=== PATIENT | female | born 1940 ===

== ENCOUNTER 2016-12-20 16:06 | Emergency (ER) | payer MEDICARE ==
[~2016-12-20] VITALS: Ht 152.4 cm; Wt 59.0 kg
--- NOTE | ~2016-12-20 | CT104 ---
[facility] A Service of [facility] RADIOLOGY TEXT RESULTS PATIENT: RICARDO RABAGO LOCATION: [facility] : 42 UNIT #: [id number] AGE: [address]: Jin Gomez MD SEX: F ORDER DR: [id number] [facility] [address] [place], [place] [address] [id number] E MR#: [id number] Acc #: [id number] NAME: RICARDO RABAGO : 1940 SEX: F STUDY DATE/TIME: 12/20/2016 17:52 UNIT: BJORN ROOM: STUDY DESCRIPTION: CT Orbits Wo Contrast Attending Physician: Jin Gomez M.D. Ordering Physician: Jin Gomez M.D. Primary Care Physician: Primary Care Physician No MEDICAL IMAGING REPORT This report is preliminary unless electronic signature is present EXAM CT orbits INDICATION Pain under the left eye. Redness and erythema. Rash. TECHNIQUE CT of the orbits without contrast. Coronal and sagittal reconstructions were obtained. This CT examination was performed with one or more of the following radiation dose reduction techniques: automatic exposure control, adjustment of mA and/or kV according to patient size, and iterative reconstruction. COMPARISON None available. FINDINGS There is mild skin thickening along the undersurface of the eyes. The orbits are normal in appearance. There is no postseptal inflammation. No loculated fluid collections. There is generalized cerebral atrophy. No acute osseous abnormalities. The paranasal sinuses are clear. No foreign body. IMPRESSION 1. Mild skin thickening along the inferior orbits. There is no loculated or drainable fluid collections. This is most consistent with a cellulitis. 2. No postseptal inflammation or evidence of a postseptal cellulitis. Dictated by... Danny Curran M.D. [facility] A Service [facility] RADIOLOGY TEXT RESULTS PATIENT: RICARDO RABAGO LOCATION: [facility] : 42 UNIT #: [id number] AGE: [address]: Jin Gomez MD SEX: F ORDER DR: THIS IS AN ELECTRONICALLY VERIFIED REPORT Danny Curran M.D. at 12/22/2016 10:26 AM BRIGIDO/lili TD: 12/21/2016 09:08 JOB #: [id number] MEDICAL IMAGING REPORT Page 1 of 1 COPY
[2016-12-20 16:58] LABS: BASOPHIL% 0.7 % (0-2.5); EOSINOPHIL# 0.2 X10e3 (0-0.7); EOSINOPHIL% 4.2 % (0.0-7.0); HEMOGLOBIN 9.7 gm/dL (12.0-16.0); LYMPHOCYTE# 1.2 X10e3 (1.0-3.5); LYMPHOCYTE% 20.6 % (17.0-45.0); MEAN CELL VOLUME 90.8 FL (83-96); MEAN CORPUSCULAR HEMOGLOBIN 30.4 PG (28-34); MEAN CORPUSCULAR HGB CONC 33.5 g/dL (30-36); MEAN PLATELET VOLUME 6.7 FL (6.5-11.5); MONOCYTE# 0.7 X10e3 (0-1.0); NEUTROPHIL# 3.5 X10e3 (1.5-7.1); NEUTROPHIL% 62.5 % (40-75); PLATELET COUNT 252 X10e3 (140-420); RED BLOOD COUNT 3.19 X10e (3.90-5.30); RED CELL DISTRIBUTION WIDTH 15.6 % (11.0-15.5); WHITE BLOOD COUNT 5.6 X10e3 (4.0-10.5)
[2016-12-20 16:59] LABS: DIFF IND NO
[2016-12-20 17:16] LABS: INR 1.1; PARTIAL THROMBOPLASTIN TIME 26.4 SECONDS (23.5-31.3); PROTHROMBIN TIME (PATIENT) 11.4 SECONDS (10.0-11.7)
[2016-12-20 17:21] LABS: BUN/CREATININE RATIO 7.53; CALCIUM SERUM 8.3 mg/dL (8.4-10.2); CREATININE SERUM 7.7 mg/dL (0.6-1.4); GLOM FILT RATE Estimated 4.7 mL/min (>60); POTASSIUM 4.6 mmol/L (3.5-5.1)
[2016-12-20] MEDS ORDERED: MOBIC15 MG PO (17:30)
[2016-12-20] MEDS ORDERED: PROAIR RESPICL90 MCG INH (17:31)
== END 2016-12-20 18:50 | disposition home or self-care (01) ==
LOC: CED 16:06
PROVIDERS: Emergency Medicine
DX: H57.8 Other specified disorders of eye and adnexa (principal); I10 Essential (primary) hypertension; Z88.0 Allergy status to penicillin; Z88.2 Allergy status to sulfonamides; Z88.5 Allergy status to narcotic agent; Z79.899 Other long term (current) drug therapy; Z91.040 Latex allergy status
CPT/HCPCS: 36415; 70480; 80048; 85025; 85610; 85730; 99284